=== PATIENT | male | born 1950 | race Caucasian/White ===

== ENCOUNTER 2016-12-03 21:42 | Emergency (ER) | payer OTHER, BC ==
[2016-12-03 22:07] VITALS: PULSE 91; TEMP 98.8; BMI 29.0
--- NOTE | 2016-12-03 22:51 | PDOC ---
History of Present Illness - General Chief Complaint: Blood Pressure Problem Stated Complaint: BLOOD PRESSURE Time Seen by Provider: 12/03/16 22:29 - History of Present Illness Initial Comments: 12/03/16 22:49 CHIEF COMPLAINT: blood pressure concern HISTORY OF PRESENT ILLNESS: 66 years old male with a significant past medical history of COPD, benign lung mass s/p LLL resection, pneumonia, ND s/p stent, HTN, HLD, GERD, BPH, anemia who presents to the emergency department with concern of elevated blood pressure today. Patient states he had a dental procedure and was given anesthesia to the right side of his face today, and afterwards he was measuring his blood pressure at home and was concerned because it "kept going up and up" with the highest BP measuring in the 180s/ 100s. Patient denies any chest pain, shortness of breath, or palpitations, and on arrival to ED with BP of 160/85 patient states "oh ok, then I'm ok, I can go home now." Patient continuously denies any other symptoms and states he will follow up with his PCP. No recent travel or sick contacts. PAST MEDICAL HISTORY: Denies past medical history FAMILY HISTORY: Denies SOCIAL HISTORY: Denies tobacco, alcohol, illicit drug use. SURGICAL HISTORY: Denies ALLERGIES: levofloxacin REVIEW OF SYSTEMS General/Constitutional: Denies fever or chills. Denies weakness, weight change. HEENT: Denies change in vision. Denies ear pain or discharge. Denies sore throat. Cardiovascular: Denies chest pain or shortness of breath. Respiratory: Denies cough, wheezing, or hemoptysis. Gastrointestinal: Denies nausea, vomiting, diarrhea or constipation. Denies rectal bleeding. Genitourinary: Denies dysuria, frequency, or change in urination. Musculoskeletal: Denies joint or muscle swelling or pain. Denies neck or back pain. Skin and breasts: Denies rash or easy bruising. Neurologic: Denies headache, vertigo, loss of consciousness, or loss of sensation. PHYSICAL EXAM General Appearance: Well-appearing, appropriately dressed. No apparent distress. HEENT: EOMI, PERRLA, normal ENT inspection, normal voice, TMs normal, pharynx normal. No conjunctival pallor. No photophobia, scleral icterus. Neck: Supple. Trachea midline. No tenderness, rigidity, carotid bruit, stridor , lymphadenopathy, or thyromegaly. Respiratory/Chest: Lungs CTAB. Cardiovascular: RRR. S1, S2. Gastrointestinal/Abdominal: Normal bowel sounds. Abdomen soft, non-distended. No tenderness or rebound tenderness. No organomegaly, pulsatile mass, guarding , hernia, hepatomegaly, splenomegaly. Musculoskeletal/Extremities: Normal inspection. FROM of all extremities, normal capillary refill. Pelvis Stable. No CVA tenderness. No tenderness to extremities, pedal edema, swelling, erythema or deformity. Integumentary: Appropriate color, dry, warm. 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 Fully oriented, alert. Appropriate mood/affect. Motor strength 5/5. No appreciable EOM palsy, facial droop or sensory deficit. 12/03/16 23:03 Past History - Past Medical History Allergies/Adverse Reactions: Allergies Allergy/AdvReac Type Severity Reaction Status Date / Time levofloxacin [From Levaquin] AdvReac Severe Rash Verified 04/21/16 01:31 Home Medications: Ambulatory Orders Aspirin [ASA -] 81 mg PO DAILY 11/14/12 Atorvastatin Ca [Lipitor] 40 mg PO HS 11/14/12 Lisinopril [Prinivil] 40 mg PO BID 11/14/12 Amlodipine Besylate [Norvasc -] 10 mg PO DAILY 03/07/13 Ranolazine [Ranexa] 500 mg PO BID 03/07/13 Pantoprazole Sodium [Protonix -] 40 mg PO DAILY 10/10/14 Clopidogrel Bisulfate [Plavix -] 75 mg PO DAILY #0 10/11/14 Metoprolol Succinate [Toprol Xl] 50 mg PO DAILY 12/03/16 Tamsulosin HCl [Flomax] 0.4 mg PO DAILY 12/03/16 Anemia: Yes Asthma: No Cancer: No Cardiac Disorders: Yes (ND SEP 2012,STENT 11/09) CVA: No COPD: Yes (H/O PNEUMONIA,H/O TB 1998 COMPLETED INH,BENIGN LUNG MASS-LLL REMOVED) CHF: No Dementia: No Diabetes: No GI Disorders: Yes (GERD) Disorders: Yes (BPH) HTN: Yes Hypercholesterolemia: Yes Liver Disease: No Suicide Attempt (Hx): No Seizures: No Thyroid Disease: No - Surgical History Abdominal Surgery: No Cardiac Surgery: Yes (cardiac cath 10/2012) Cholecystectomy: Yes Lung Surgery: Yes (lung resection,1999,BENIGN MASS) Neurologic Surgery: No Orthopedic Surgery: No - Immunization History Immunization Up to Date: No - Psycho/Social/Smoking Cessation Hx Anxiety: No Suicidal Ideation: No Smoking Status: Yes Smoking History: Former smoker Have you smoked in the past 12 months: No Number of Cigarettes Smoked Daily: 0 If you are a former smoker, when did you quit?: 1999 Information on smoking cessation initiated: No Hx Alcohol Use: No Drug/Substance Use Hx: No Substance Use Type: None Hx Substance Use Treatment: No *Physical Exam - Vital Signs Last Vital Signs Temp Pulse Resp BP Pulse Ox 98.8 F 91 H 18 185/89 99 12/03/16 22:04 12/03/16 22:04 12/03/16 22:04 12/03/16 22:04 12/03/16 22:04 Medical Decision Making - Medical Decision Making 12/03/16 23:15 66 years old male with a significant past medical history of COPD, benign lung mass s/p LLL resection, pneumonia, ND s/p stent, HTN, HLD, GERD, BPH, anemia who presents to the emergency department with concern of elevated blood pressure today. On exam patient denies any complaints and states he is reassured now that his blood pressure has lowered and wants to go home. However patient is amenable to having an EKG performed. EKG NSR, no acute changes. Patient states he will f/u with his PCP for further monitoring and evaluation. Advised patient of signs and symptoms for return to ER; patient verbalized understanding and agrees to plan.
[2016-12-03 22:56] VITALS: BP 160/85
--- NOTE | 2016-12-04 12:20 | EKG ---
Test Reason : Blood Pressure : / mmHG Vent. Rate : 068 BPM Atrial Rate : 068 BPM P-R Int : 192 ms QRS Dur : 122 ms QT Int : 418 ms P-R-T Axes : 061 -56 -03 degrees QTc Int : 444 ms NORMAL SINUS RHYTHM LEFT ANTERIOR FASCICULAR BLOCK ABNORMAL ECG WHEN COMPARED WITH ECG OF 21-APR-2016 02:22, PREMATURE VENTRICULAR COMPLEXES ARE NO LONGER PRESENT Confirmed by ELICEO DENNY, AKBAR ([id number]) on 12/04/2016 12:20:26 PM Referred By: Confirmed By:AKBAR FENTON MD
== END 2016-12-03 23:20 | disposition home or self-care (01) ==
LOC: JER 21:42
DX: Z01.31 Encounter for examination of blood pressure with abnormal findings (principal); J44.9 Chronic obstructive pulmonary disease, unspecified; Z87.891 Personal history of nicotine dependence; I10 Essential (primary) hypertension; K21.9 Gastro-esophageal reflux disease without esophagitis; E78.00 Pure hypercholesterolemia, unspecified
CPT/HCPCS: 93005; 93010; 99282-25

== ENCOUNTER 2016-12-18 13:27 | Observation (INO) | payer OTHER, BC ==
[2016-12-18] MEDS ORDERED: ASPIRIN 81 MG CHEWABLE TABLETS PO ONE (14:06)
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
--- NOTE | 2016-12-18 14:19 | PDOC ---
History of Present Illness - General Chief Complaint: Chest Pain Stated Complaint: CHEST PAIN Time Seen by Provider: 12/18/16 13:49 Past History - Past Medical History Allergies/Adverse Reactions: Allergies Allergy/AdvReac Type Severity Reaction Status Date / Time levofloxacin [From Levaquin] AdvReac Severe Rash Verified 12/18/16 13:32 Home Medications: Ambulatory Orders Aspirin [ASA -] 81 mg PO DAILY 11/14/12 Atorvastatin Ca [Lipitor] 40 mg PO HS 11/14/12 Lisinopril [Prinivil] 40 mg PO BID 11/14/12 Amlodipine Besylate [Norvasc -] 10 mg PO DAILY 03/07/13 Ranolazine [Ranexa] 500 mg PO BID 03/07/13 Pantoprazole Sodium [Protonix -] 40 mg PO DAILY 10/10/14 Clopidogrel Bisulfate [Plavix -] 75 mg PO DAILY #0 10/11/14 Metoprolol Succinate [Toprol Xl] 50 mg PO DAILY 12/03/16 Tamsulosin HCl [Flomax] 0.4 mg PO DAILY 12/03/16 Anemia: Yes Asthma: No Cancer: No Cardiac Disorders: Yes (LA SEP 2012,STENT 11/09) CVA: No COPD: Yes (H/O PNEUMONIA,H/O TB 1997 COMPLETED INH,BENIGN LUNG MASS-LLL REMOVED) CHF: No Dementia: No Diabetes: No GI Disorders: Yes (GERD) Disorders: Yes (BPH) HTN: Yes Hypercholesterolemia: Yes Liver Disease: No Seizures: No Thyroid Disease: No - Surgical History Abdominal Surgery: No Cardiac Surgery: Yes (cardiac cath 10/2012) Cholecystectomy: Yes Lung Surgery: Yes (lung resection,1999,BENIGN MASS) Neurologic Surgery: No Orthopedic Surgery: No - Immunization History Immunization Up to Date: No - Suicide/Smoking/Psychosocial Hx Smoking Status: Yes Smoking History: Never smoked Have you smoked in the past 12 months: No Number of Cigarettes Smoked Daily: 0 If you are a former smoker, when did you quit?: 1999 Information on smoking cessation initiated: No Hx Alcohol Use: No Drug/Substance Use Hx: No Substance Use Type: None Hx Substance Use Treatment: No *Physical Exam - Vital Signs Last Vital Signs Temp Pulse Resp BP Pulse Ox 97.9 F 78 18 160/88 96 12/18/16 13:29 12/18/16 13:29 12/18/16 13:29 12/18/16 13:29 12/18/16 14:07
--- NOTE | 2016-12-18 14:25 | PDOC ---
Attending Attestation - HPI HPI: 12/18/16 14:31 The patient is a 66 year old male with history of hypertension, hyperlipidemia, CAD s/p OR s/p stent, sent to the ED by his PCP for 3 days of chest pain. He describes his chest pain as left sided, sharp/stabbing, not radiating or migrating, ranked 4/10 in intensity. No modifying factors. No nausea, vomiting, or diaphoresis. No lightheadedness, palpitations, SOB, or peripheral edema. Seen by his PCP this morning who sent him to ED for further evaluation. PCP: Dr. Sage - Physicial Exam PE: 12/18/16 14:33 GENERAL: Awake, alert, and fully oriented, in no acute distress HEAD: No signs of trauma EYES: PERRLA, EOMI, sclera anicteric, conjunctiva clear ENT: Auricles normal inspection, hearing grossly normal, nares patent, oropharynx clear without exudates. Moist mucosa NECK: Normal ROM, supple, no lymphadenopathy, JVD, or masses LUNGS: Breath sounds equal, clear to auscultation bilaterally. No wheezes, and no crackles HEART: Regular rate and rhythm, normal S1 and S2, no murmurs, rubs or gallops ABDOMEN: Soft, nontender, normoactive bowel sounds. No guarding, no rebound. No masses EXTREMITIES: Normal range of motion, no edema. No clubbing or cyanosis. No cords, erythema, or tenderness NEUROLOGICAL: Cranial nerves II through XII grossly intact. Normal speech, normal gait SKIN: Warm, Dry, normal turgor, no rashes or lesions noted. - Medical Decision Making 12/18/16 14:33 Documentation prepared by Isamar Guy, acting as site medical director for Luis A Russell MD. <Isamar Guy - Last Filed: 12/18/16 14:31> - Resident Resident Name: Margie Oneal - ED Attending Attestation I have performed the following: I have examined & evaluated the patient, The case was reviewed & discussed with the resident, I agree w/resident's findings & plan, Exceptions are as noted - Medical Decision Making 12/18/16 14:25 Vital Signs Temp Pulse Resp BP Pulse Ox 97.9 F 78 18 160/88 96 12/18/16 13:29 12/18/16 13:29 12/18/16 13:29 12/18/16 13:29 12/18/16 14:07 66-year-old male with history of hypertension, COPD, coronary disease status post stent sent in by his primary care physician Dr. Sage for chest pain. The patient reports 3 days constant midsternal sharp occasionally pressure-like chest pain or shortness of breath. Does not have an exertional component. Denies recent illnesses, fevers or chills. Denies history of pulmonary embolism or pleuritic component. We'll need to rule out OR. EKG, chest x-ray, aspirin admission to the hospital for further evaluation. <Luis A Russell - Last Filed: 12/18/16 14:58> Heart Score/ECG Review - History History: Moderately suspicious - Electrocardiogram EKG: Non specific repolarization disturbance - Age Age: >/= 65 - Risk Factors Based on the list above the patient has:: >/=3 risk factors or Hx atherosclerotic disease #1 ECG reviewed & interpreted by me at: 14:55 12/18/16 14:58 NSR 61 TWI III LAFB, no std/tracey, QTC 436 msec <Luis A Russell - Last Filed: 12/18/16 14:58>
[2016-12-18 14:40] LABS: BASOPHIL 0.7 % (0-2.0); EOSINOPHIL 1.4 % (0-4.5); MCH 27.7 pg (25.7-33.7); MCHC 33.5 g/dl (32.0-35.9); MEAN CELL VOLUME 82.7 fl (80-96); MEAN PLT VOLUME 7.2 fl (7.5-11.1); NEUTROPHILS 71.9 % (42.8-82.8); PLATELET COUNT 265 K/MM3 (134-434); RDW 13.9 % (11.9-15.9); WHITE BLOOD COUNT 8.3 K/mm3 (4.0-10.0)
[2016-12-18] MEDS ORDERED: ASPIRIN 81 MG CHEWABLE TABLETS ONE (14:45)
[2016-12-18 14:55] LABS: INR 1.25 (0.82-1.09); PROTHROMBIN TIME (PATIENT) 13.8 SEC (9.98-11.88)
[2016-12-18 15:06] LABS: ALBUMIN 4.2 g/dl (3.4-5.0); ANION GAP 11 (8-16); BILIRUBIN,TOTAL 1.1 mg/dL (0.2-1.0); CALCIUM 9.6 mg/dL (8.5-10.1); CO2 27 mmol/L (21-32); CPK 77 IU/L (39-308); CREATININE 1.5 mg/dL (0.7-1.3); GLUCOSE,RANDOM 107 mg/dL (74-106); MAGNESIUM 2.3 mg/dL (1.8-2.4); SGOT/AST 12 U/L (15-37); SGPT/ALT 29 U/L (12-78); TOT PROT 7.7 g/dl (6.4-8.2)
[2016-12-18 15:08] LABS: ALK PHOS 63 U/L (45-117); TROPONIN I < 0.02 ng/ml (0.00-0.05)
--- NOTE | 2016-12-18 15:58 | EKG ---
Test Reason : Blood Pressure : / mmHG Vent. Rate : 061 BPM Atrial Rate : 061 BPM P-R Int : 190 ms QRS Dur : 120 ms QT Int : 434 ms P-R-T Axes : 050 -52 009 degrees QTc Int : 436 ms NORMAL SINUS RHYTHM LEFT ANTERIOR FASCICULAR BLOCK ABNORMAL ECG WHEN COMPARED WITH ECG OF 03-DEC-2016 23:06, NO SIGNIFICANT CHANGE WAS FOUND Confirmed by AKBAR FENTON MD ([id number]) on 12/18/2016 3:57:44 PM Referred By: Confirmed By:AKBAR FENTON MD
[2016-12-18] MEDS ORDERED: RANOLAZINE E.R. 500 MG TABLET (FP) PO ONE (16:59)
[2016-12-18] MEDS ORDERED: CLOPIDOGREL BISULFATE 75 MG TABLET (FP) PO ONE (17:00)
[2016-12-18] MEDS ORDERED: CLOPIDOGREL BISULFATE 75 MG TABLET (FP) ONE (17:17)
[2016-12-18 18:50] VITALS: BMI 29.0
[2016-12-18 20:51] LABS: CPK 65 IU/L (39-308); TROPONIN I < 0.02 ng/ml (0.00-0.05)
[2016-12-18] MEDS: RANOLAZINE E.R. 500 MG TABLET (FP) PO SCH (21:03)
[2016-12-18] MEDS ORDERED: ATORVASTATIN CA 40 MG TABLET (FP) PO SCH (22:00)
[2016-12-18] MEDS ORDERED: LISINOPRIL 20 MG TABLET (FP) PO SCH (22:00)
[2016-12-18] MEDS: NITROGLYCERIN 2% OINTMENT - 1GM PACKET TD SCH (23:37)
[2016-12-19] MEDS: NITROGLYCERIN 2% OINTMENT - 1GM PACKET TD SCH ×2 (06:28→13:59)
[2016-12-19 06:36] LABS: BASOPHIL 1.1 % (0-2.0); EOSINOPHIL 3.2 % (0-4.5); MCH 27.8 pg (25.7-33.7); MCHC 33.9 g/dl (32.0-35.9); MEAN CELL VOLUME 82.1 fl (80-96); MEAN PLT VOLUME 7.4 fl (7.5-11.1); NEUTROPHILS 58.8 % (42.8-82.8); PLATELET COUNT 232 K/MM3 (134-434); RDW 13.7 % (11.9-15.9); WHITE BLOOD COUNT 8.7 K/mm3 (4.0-10.0)
[2016-12-19 06:56] LABS: ALBUMIN 3.5 g/dl (3.4-5.0); ANION GAP 8 (8-16); BILIRUBIN,TOTAL 0.9 mg/dL (0.2-1.0); CO2 29 mmol/L (21-32); CREATININE 1.4 mg/dL (0.7-1.3); GLUCOSE,RANDOM 99 mg/dL (74-106); SGOT/AST 13 U/L (15-37); SGPT/ALT 27 U/L (12-78); TOT PROT 6.7 g/dl (6.4-8.2)
[2016-12-19 06:59] LABS: ALK PHOS 56 U/L (45-117); TROPONIN I < 0.02 ng/ml (0.00-0.05)
[2016-12-19] MEDS ORDERED: TAMSULOSIN HCL 0.4 MG CAP.ER.24H (FP) PO SCH (08:30)
[2016-12-19] MEDS ORDERED: SODIUM CHLORIDE 0.45%/POT 1,000 ML IV SCH (08:45)
--- NOTE | 2016-12-19 08:55 | HP ---
Admitting History and Physical - Admission History of Present Illness: 66yo M with PMH of [place] with stent, htn, hld, gerd, COPD, presents c/o chest pain x 3 days. Pain is in Left chest, described as a sharp/stabbing pain, non- radiating, rated 4/10. Pain is not worse with position change,or eating. Pain is not reproducible on palpation. Pt did not take any medication to alleviate the pain. He was seen in the office given nitro with some relief This am still with chest pain with some improvement - Past Medical History Cardiovascular: Yes: CAD (s/p stenting--LAD), HTN, Hyperlipdemia Pulmonary: Yes: COPD, Other (lobectomy) - Smoking History Smoking history: Never smoked Have you smoked in the past 12 months: No Aproximately how many cigarettes per day: 0 If you are a former smoker, when did you quit?: 1999 - Alcohol/Substance Use Hx Alcohol Use: No Home Medications - Allergies Allergies/Adverse Reactions: Allergies Allergy/AdvReac Type Severity Reaction Status Date / Time levofloxacin [From Levaquin] AdvReac Severe Rash Verified 12/18/16 13:32 - Home Medications Home Medications: Ambulatory Orders Aspirin [ASA -] 81 mg PO DAILY 11/14/12 Atorvastatin Ca [Lipitor] 40 mg PO HS 11/14/12 Lisinopril [Prinivil] 40 mg PO BID 11/14/12 Amlodipine Besylate [Norvasc -] 10 mg PO DAILY 03/07/13 Ranolazine [Ranexa] 500 mg PO BID 03/07/13 Pantoprazole Sodium [Protonix -] 40 mg PO DAILY 10/10/14 Clopidogrel Bisulfate [Plavix -] 75 mg PO DAILY #0 10/11/14 Metoprolol Succinate [Toprol Xl] 50 mg PO DAILY 12/03/16 Tamsulosin HCl [Flomax] 0.4 mg PO DAILY 12/03/16 Review of Systems - Review of Systems Cardiovascular: reports: Chest Pain. denies: Palpitations Respiratory: reports: SOB on Exertion Gastrointestinal: reports: No Symptoms Genitourinary: reports: No Symptoms Physical Examination Vital Signs: Vital Signs Temperature 98.2 F 12/19/16 06:00 Pulse Rate 63 12/19/16 06:00 Respiratory Rate 20 12/19/16 06:00 Blood Pressure 116/67 12/19/16 06:00 O2 Sat by Pulse Oximetry (%) 92 L 12/18/16 21:00 Cardiovascular: Yes: Regular Rate and Rhythm Respiratory: Yes: Regular, CTA Bilaterally Gastrointestinal: Yes: Normal Bowel Sounds, Soft. No: Tenderness Edema: No Labs: CBC, BMP 12/19/16 05:30 12/19/16 05:30 Problem List - Problems (1) Atypical chest pain Assessment/Plan: CE NEGATIVE D/W DR TOVAR--TRANSFER FOR CATH AT [facility] Code(s): R07.89 - OTHER CHEST PAIN (2) Hypertension Assessment/Plan: MONITOR ON CURRENT MEDS ON ASA/PLAVIX ON NITROPASTE Code(s): I10 - ESSENTIAL (PRIMARY) HYPERTENSION (3) CAD (coronary artery disease) Assessment/Plan: ABOVE Code(s): I25.10 - ATHSCL HEART DISEASE OF [place] CORONARY ARTERY W/O ANG PCTRS
[2016-12-19] MEDS: RANOLAZINE E.R. 500 MG TABLET (FP) PO SCH (10:00)
[2016-12-19] MEDS ORDERED: ASPIRIN 81 MG CHEWABLE TABLETS PO SCH (10:00)
[2016-12-19] MEDS ORDERED: PANTOPRAZOLE 40 MG TABLET (FP) PO SCH (10:00)
[2016-12-19] MEDS ORDERED: LISINOPRIL 20 MG TABLET (FP) PO SCH (10:00)
[2016-12-19] MEDS ORDERED: CLOPIDOGREL BISULFATE 75 MG TABLET (FP) PO SCH (10:00)
[2016-12-19] MEDS ORDERED: amLODIPine BESYLATE 5 MG TABLET (FP) PO SCH (10:00)
[2016-12-19] MEDS ORDERED: METOPROLOL SUCCINATE 50 MG TAB.SR.24H (FP) PO SCH (10:00)
--- NOTE | 2016-12-19 14:11 | CON.CARD ---
Consult Consult Specialty:: cardiology Referred by:: Alona Reason for Consultation:: Chest pain - History of Present Illness Chief Complaint: Chest pain History of Present Illness: The patient is a 66-year-old man, with a history of hypertension, hyperlipidemia , GERD, COPD, coronary artery disease and myocardial infarction, prior stent to the proximal LAD and mid RCA in 2012, now presenting with recurrent chest pains for the past 4 days. The patient underwent cardiac catheterization approximately one year ago, which showed patent stents. A recent stress test was normal. The symptoms improved with the nitroglycerin patch. Symptoms are not reproducible. - History Source History Provided By: Patient Limitations to Obtaining History: No Limitations - Past Medical History [employer] WORK[employer]: No: Alzheimer's, CVA, Dementia, Migraine, Multiple Sclerosis, Peripheral Neuropathy, Parkinson's, Seizure, Syncope, TIA, Vertigo, Other Cardio/Vascular: Yes: CAD (s/p stenting--LAD), HTN, Hyperlipdemia Pulmonary: Yes: COPD, Other (lobectomy). No: Asthma, Bronchitis, Cancer, O2 Dependent, Pneumonia, Previously Intubated, Pulmonary Embolus, Pulmonary Fibrosis, Sleep Apnea Gastrointestinal: No: Ascites, Cancer, Constipation, Crohn's Disease, Diverticulitis, Diverticulosis, Esophageal Varices, Gastritis, GERD, GI Bleed, Hemorrhoids, Hiatal Hernia, Inflamatory Bowel Disease, Irritable Bowel Disease, Pancreatitis, Peptic Ulcer Disease, Ulcerative Colitis, Other Hepatobiliary: No: Cirrhosis, Cholelithiasis, Cholecystitis, Choledocholithiasis , Hepatitis A, Hepatitis B, Hepatitis C, Other Renal/: No: Renal Failure, Renal Inusuff, BPH, Cancer, Hematuria, Hemodialysis , Neurogenic Bladder, Renal Calculi, UTI, Other Heme/Onc: No: Anemia, B12 Deficiency, Bleeding Disorder, Cancer, Current Chemotherapy, Current Radiation Therapy, Hemochromatosis, Hypercoaguable State, Myeloproliferative Synd, Sickle Cell Disease, Sickle Cell Trait, Thrombocytopenia, Other Infectious Disease: No: AIDS, C-Diff, Herpes Zoster, HIV, MRSA, STD's, Tuberculosis, VREF, Other Psych: No: Addictions, Anxiety, Bipolar, Depression, Panic, Psychosis, Schizophrenia, Other Musculoskeletal: No: Bursitis, Chronic low back pain, Hemiparesis, Hemiplegia, Osteoarthritis, Paraplegia, Other Rheumatology: No: Fibromyalgia, Gout, Lupus, Rheumatoid Arthritis, Sarcoidosis, Vasculitis, Other ENT: No: Allergic Rhinitis, Sinusitis, Other Endocrine: No: Alistair's Disease, [place]'s Disease, Diabetes Insipidus, Diabetes Mellitus, Hyperparathyroidism, Hyperthyroidism, Hypothyroidism, Osteopenia, SIADH, Other Dermatology: No: Basal Cell, Cellulitis, Eczema, Melanoma, Psoriasis, Squamous Cell, Other - Alcohol/Substance Use Hx Alcohol Use: No - Smoking History Smoking history: Never smoked Have you smoked in the past 12 months: No Aproximately how many cigarettes per day: 0 If you are a former smoker, when did you quit?: 1999 Home Medications - Allergies Allergies/Adverse Reactions: Allergies Allergy/AdvReac Type Severity Reaction Status Date / Time levofloxacin [From Levaquin] AdvReac Severe Rash Verified 12/18/16 13:32 - Home Medications Home Medications: Ambulatory Orders Aspirin [ASA -] 81 mg PO DAILY 11/14/12 Atorvastatin Ca [Lipitor] 40 mg PO HS 11/14/12 Lisinopril [Prinivil] 40 mg PO BID 11/14/12 Amlodipine Besylate [Norvasc -] 10 mg PO DAILY 03/07/13 Ranolazine [Ranexa] 500 mg PO BID 03/07/13 Pantoprazole Sodium [Protonix -] 40 mg PO DAILY 10/10/14 Clopidogrel Bisulfate [Plavix -] 75 mg PO DAILY #0 10/11/14 Metoprolol Succinate [Toprol Xl] 50 mg PO DAILY 12/03/16 Tamsulosin HCl [Flomax] 0.4 mg PO DAILY 12/03/16 Review of Systems - Review of Systems Constitutional: denies: No Symptoms, Chills, Diaphoresis, Fever, Lethargy, Loss of Appetite, Malaise, Night Sweats, Unintentional Wgt. Loss, Weakness, Other Eyes: denies: No Symptoms, Blind Spots, Blurred Vision, Double Vision, Eye Pain , Floaters, Photophobia, Recent Change in Vision, Other HENT: denies: No Symptoms, Difficult Swallowing, Ear Discharge, Ear Pain, Epistaxis, Gingival Bleeding, Hearing Loss, Mouth Swelling, Nasal Congestion, Ocular Prosthesis, Throat Pain, Toothache, Ringing in Ears, Other Neck: reports: No Symptoms Cardiovascular: reports: Chest Pain Respiratory: reports: No Symptoms Gastrointestinal: reports: No Symptoms Genitourinary: reports: No Symptoms Breasts: reports: No Symptoms Reported Musculoskeletal: reports: No Symptoms Integumentary: reports: No Symptoms Neurological: reports: No Symptoms Endocrine: reports: No Symptoms Vital Signs: Vital Signs Temperature 98.0 F 12/19/16 10:00 Pulse Rate 60 12/19/16 10:00 Respiratory Rate 18 12/19/16 10:00 Blood Pressure 123/66 12/19/16 10:00 O2 Sat by Pulse Oximetry (%) 94 L 12/19/16 10:00 Constitutional: Yes: Well Nourished, No Distress, Calm Eyes: Yes: WNL, Conjunctiva Clear HENT: Yes: WNL, Atraumatic, Normocephalic Neck: Yes: WNL, Supple, Trachea Midline Respiratory: Yes: WNL, Regular, CTA Bilaterally Gastrointestinal: Yes: WNL, Normal Bowel Sounds, Soft Renal/: Yes: WNL Cardiovascular: Yes: Regular Rate and Rhythm JVD: No Carotid Bruit: No PMI: Non-Displaced Heart Sounds: Yes: S1, S2 Musculoskeletal: Yes: WNL Extremities: Yes: WNL Edema: No Peripheral Pulses WNL: No Integumentary: Yes: WNL Neurological: Yes: WNL ...Motor Strength: WNL Psychiatric: Yes: WNL - Other Data Labs, Other Data: CBC, BMP 12/19/16 05:30 12/19/16 05:30 INR, PTT INR 1.25 (0.82-1.09) H 12/18/16 14:30 Troponin, BNP 12/18/16 12/19/16 19:20 05:30 Troponin I < 0.02 < 0.02 Troponin, BNP 12/18/16 12/19/16 19:20 05:30 Troponin I < 0.02 < 0.02 Assessment/Plan 66-year-old man with known coronary artery disease and prior stents, now presenting with recurrent chest pain. The patient ruled out for myocardial infarction. There is no CHF. No acute ECG changes. The patient is in sinus rhythm. The symptoms are persisting for the past 4 days. The improved with the nitroglycerin patch. Keep the patient NPO Continue current regimen. The patient will be transferred to [facility] for cardiac catheterization today. Stable for transfer.
[2016-12-19 15:23] VITALS: BP 133/76; PULSE 63; TEMP 97.7
== END 2016-12-19 16:50 | disposition short-term general hospital (02) ==
LOC: JER 13:27 → JERBED 15:48 → J4S 17:33
PROVIDERS: ADMIT Family Medicine; ATTEND Family Medicine
DX: I10 Essential (primary) hypertension (principal); I25.10 Atherosclerotic heart disease of native coronary artery without angina pectoris; I25.2 Old myocardial infarction; E78.5 Hyperlipidemia, unspecified; K21.9 Gastro-esophageal reflux disease without esophagitis; J44.9 Chronic obstructive pulmonary disease, unspecified; N40.0 Benign prostatic hyperplasia without lower urinary tract symptoms; Z86.11 Personal history of tuberculosis; Z79.82 Long term (current) use of aspirin; Z88.1 Allergy status to other antibiotic agents; Z95.5 Presence of coronary angioplasty implant and graft; Z79.01 Long term (current) use of anticoagulants; Z86.2 Personal history of diseases of the blood and blood-forming organs and certain disorders involving the immune mechanism; Z90.2 Acquired absence of lung [part of]
CPT/HCPCS: 36415; 71020-TC; 80053; 83735; 84484; 85025; 85610; 93005; 93010; 99285-25; G0378; J3480

== ENCOUNTER 2017-05-29 08:01 | Observation (INO) | payer OTHER, BC ==
--- NOTE | 2017-05-29 08:28 | PDOC ---
Attending Attestation - Resident Resident Name: David Jin - HPI HPI: 05/29/17 11:32 Pt presents to the ED complaining of a several day history of bright red blood per rectum that became acutely worse today. Patient has a history of CAD, and complains of lightheadness but not chest pain or worsening shortness of breath. - Physicial Exam PE: 05/29/17 11:35 Agree with resident exam. Patient is alert and oriented in no acute distresss. Abdomen is soft, non distended and non tender. - Medical Decision Making 05/29/17 11:35 Pt presents to the ED with bright red blood per rectum. Denies other complaints. + gross blood on exam, but is hemodyanmically stable without severe anemia. Will admit to medicine for continued monitoring and serial hemoglobins.
--- NOTE | 2017-05-29 08:43 | PDOC ---
History of Present Illness - General Chief Complaint: Rectal Bleed Stated Complaint: RECTAL BLEEDING Time Seen by Provider: 05/29/17 08:24 - History of Present Illness Initial Comments: 05/29/17 09:05 The patient is a 66 year old male with a history of HTN, HLD, COPD, [place] s/p stenting 2012, Anemia who presents for evaluation of rectal bleeding. The patient reports intermittent BRBPR over the past month. He notes that over the past 2 days he has been experiencing constant BRBPR with more frequent bowel movements that he notes this morning as consisting mostly of blood prompting his presentation to the ED for evaluation. He notes that he is on aspirin and plavix. He states that he had a colonoscopy 3-5 years ago that was reportedly unremarkable. Otherwise he denies any symptoms similar to this in the past. He endorses some lightheadedness as well as some SOB which is unchanged from his baseline due to his COPD. He otherwise denies fevers, chills, chest pain, nausea, vomiting, abdominal pain, pain with bowel movements, or changes with urination. Past History - Past Medical History Allergies/Adverse Reactions: Allergies Allergy/AdvReac Type Severity Reaction Status Date / Time levofloxacin [From Levaquin] AdvReac Severe Rash Verified 05/29/17 08:07 Home Medications: Ambulatory Orders Aspirin [ASA -] 81 mg PO DAILY 11/14/12 Atorvastatin Ca [Lipitor] 40 mg PO HS 11/14/12 Lisinopril [Prinivil] 40 mg PO BID 11/14/12 Amlodipine Besylate [Norvasc -] 10 mg PO DAILY 03/07/13 Ranolazine [Ranexa] 500 mg PO BID 03/07/13 Pantoprazole Sodium [Protonix -] 40 mg PO DAILY 10/10/14 Clopidogrel Bisulfate [Plavix -] 75 mg PO DAILY #0 10/11/14 Metoprolol Succinate [Toprol Xl] 50 mg PO DAILY 12/03/16 Tamsulosin HCl [Flomax] 0.4 mg PO DAILY 12/03/16 Anemia: Yes Asthma: No Cancer: No Cardiac Disorders: Yes ([place] SEP 2012,STENT 11/09) CVA: No COPD: Yes (H/O PNEUMONIA,H/O TB 1997 COMPLETED INH,BENIGN LUNG MASS-LLL REMOVED) CHF: No Dementia: No Diabetes: No GI Disorders: Yes (GERD) Disorders: Yes (BPH) HTN: Yes Hypercholesterolemia: Yes Liver Disease: No Seizures: No Thyroid Disease: No - Surgical History Abdominal Surgery: No Cardiac Surgery: Yes (cardiac cath 10/2012) Cholecystectomy: Yes Lung Surgery: Yes (lung resection,1999,BENIGN MASS) Neurologic Surgery: No Orthopedic Surgery: No - Immunization History Immunization Up to Date: No - Suicide/Smoking/Psychosocial Hx Smoking Status: Yes Smoking History: Never smoked Have you smoked in the past 12 months: No Number of Cigarettes Smoked Daily: 0 If you are a former smoker, when did you quit?: 1999 Information on smoking cessation initiated: No Hx Alcohol Use: No Drug/Substance Use Hx: No Substance Use Type: None Hx Substance Use Treatment: No Review of Systems - Review of Systems Comments:: 05/29/17 09:10 Constitutional: No fevers, chills, fatigue, malaise HEENT: No Rhinorrhea, nasal congestion, visual changes Cardiovascular: Lightheadedness. No chest pain, syncope, palpitations, Respiratory: SOB. No Cough, Hemoptysis, Gastrointestinal: BRBPR. No Abdominal pain, Nausea, Vomiting, Constipation, Diarrhea, Melena Genitourinary: No Dysuria, Frequency, Urgency, Hesitancy, Hematuria, Flank pain Musculoskeletal: No Myalgia, arthralgia Skin: No rashes, itching, bruising, pallor Neurologic: No Headache, Dizziness, Numbness, Weakness, or Tingling Psychiatric: No Hallucinations. No SI or HI *Physical Exam - Vital Signs Last Vital Signs Temp Pulse Resp BP Pulse Ox 97.7 F 87 17 136/73 97 05/29/17 08:08 05/29/17 08:08 05/29/17 08:08 05/29/17 08:08 05/29/17 08:08 - Physical Exam Comments: 05/29/17 09:11 General Appearance: Nourished. No Apparent Distress HEENT: EOMI, GORGE. No Pharyngeal Erythema, Tonsillar Exudate, Tonsillar Erythema Neck: No Cervical Lymphadenopathy Respiratory/Chest: Lungs Clear, Normal Breath Sounds. No Crackles, Rales, Rhonchi, Wheezing Cardiovascular: Regular Rhythm, Regular Rate. 2/6 Systolic murmur noted on exam. No Gallops, Rubs Gastrointestinal/Abdominal: Normal Bowel Sounds, Soft. No Guarding, Rebound, Tenderness Rectal Exam: No external hemorrhoids noted. Bright red blood noted externally on exam. No internal abnormalities noted. Musculoskeletal: No CVA Tenderness Extremity: Normal Capillary Refill Integumentary: Normal Color, Dry, Warm Neurologic: Fully Oriented, Alert, Normal Mood/Affect, Normal Response, ED Treatment Course - LABORATORY CBC & Chemistry Diagram: 05/29/17 09:00 05/29/17 09:00 Medical Decision Making - Medical Decision Making 05/29/17 09:24 The patient is a 66 year old male with a history of HTN, HLD, COPD, [place] s/p stenting 2013, Anemia who presents for evaluation of rectal bleeding. Given the patient's physical exam, no hemorrhoids are noted and it is possible his bleeding is due to an internal cause within the colon. We will send a cbc, cmp , lipase, troponin, ekg, coags to evaluate further. We will continue to monitor and reassess. He will likely require admission for colonoscopy. 05/29/17 11:05 CBC, cmp, lipase, troponin are unremarkable. Given the patient's symptoms we believe he requires admission and GI evaluation. We discussed the case with Dr. Sage who accepted the patient for admission. *DC/Admit/Observation/Transfer Diagnosis at time of Disposition: Rectal bleed - Discharge Dispostion Condition at time of disposition: Stable Admit: Yes - Referrals Referrals: Elicia Sage MD [Primary Care Provider] - - Patient Instructions - Post Discharge Activity
[2017-05-29 09:11] LABS: BASO % 0.9 % (0-2.0); EOS % 1.7 % (0-4.5); HEMATOCRIT 36.8 % (35.4-49); HEMOGLOBIN 12.8 GM/dL (11.7-16.9); LYMPH % 12.6 % (8-40); MCH 28.4 pg (25.7-33.7); MCHC 34.7 g/dl (32.0-35.9); MEAN CELL VOLUME 81.8 fl (80-96); MEAN PLT VOLUME 7.2 fl (7.5-11.1); NEUT % 73.8 % (42.8-82.8); PLATELET COUNT 213 K/MM3 (134-434); RBC 4.49 M/mm3 (4.00-5.60); RDW 13.4 % (11.9-15.9); WHITE BLOOD COUNT 6.1 K/mm3 (4.0-10.0)
[2017-05-29 09:28] LABS: INR 1.19 (0.82-1.09); PROTHROMBIN TIME (PATIENT) 13.5 SEC (9.98-11.88)
[2017-05-29 09:30] LABS: ACTIVATED PTT 28.2 SECONDS (26.9-34.4)
[2017-05-29 09:39] LABS: ALBUMIN 3.7 g/dl (3.4-5.0); ANION GAP 8 (8-16); BLOOD UREA NITROGEN 20 mg/dL (7-18); CALCIUM 8.4 mg/dL (8.5-10.1); CHLORIDE 103 mmol/L (98-107); CO2 27 mmol/L (21-32); CREATININE 1.4 mg/dL (0.7-1.3); GLUCOSE,RANDOM 144 mg/dL (74-106); LIPASE 174 U/L (73-393); POTASSIUM 3.2 mmol/L (3.5-5.1); SGOT/AST 14 U/L (15-37); SGPT/ALT 18 U/L (12-78); SODIUM 138 mmol/L (136-145); TOT PROT 6.7 g/dl (6.4-8.2)
[2017-05-29 09:41] LABS: ALK PHOS 42 U/L (45-117); BILIRUBIN,TOTAL 0.8 mg/dL (0.2-1.0)
[2017-05-29] MEDS: D5-1/2NS+20 MEQ KCL - 20 MEQ/1,000 ML INFUS.BAG IV SCH (13:18)
[2017-05-29 13:33] LABS: HEMATOCRIT 36.5 % (35.4-49); HEMOGLOBIN 12.5 GM/dL (11.7-16.9); MCHC 34.2 g/dl (32.0-35.9); MEAN CELL VOLUME 81.9 fl (80-96); MEAN PLT VOLUME 7.4 fl (7.5-11.1); PLATELET COUNT 231 K/MM3 (134-434); RBC 4.46 M/mm3 (4.00-5.60); RDW 13.5 % (11.9-15.9); WHITE BLOOD COUNT 7.2 K/mm3 (4.0-10.0)
--- NOTE | 2017-05-29 13:42 | HP ---
Admitting History and Physical - Admission History of Present Illness: 66 year old male with a history of HTN, HLD, COPD, [place] s/p stenting 2012, Anemia who presents for evaluation of rectal bleeding. The patient reports intermittent BRBPR over the past month. He notes that over the past 2 days he has been experiencing constant BRBPR with more frequent bowel movements that he notes this morning as consisting mostly of blood prompting his presentation to the ED for evaluation. He notes that he is on aspirin and plavix. He states that he had a colonoscopy 3-5 years ago that was reportedly unremarkable. Otherwise he denies any symptoms similar to this in the past. He endorses some lightheadedness as well as some SOB which is unchanged from his baseline due to his COPD. He otherwise denies fevers, chills, chest pain, nausea, vomiting, abdominal pain, pain with bowel movements, or changes with urination. - Past Medical History Cardiovascular: Yes: CAD (s/p stenting--LAD), HTN, Hyperlipdemia Pulmonary: Yes: COPD, Other (lobectomy). No: Asthma, Bronchitis, Cancer, O2 Dependent, Pneumonia, Previously Intubated, Pulmonary Embolus, Pulmonary Fibrosis, Sleep Apnea Gastrointestinal: Yes: GERD - Smoking History Smoking history: Never smoked Have you smoked in the past 12 months: No Aproximately how many cigarettes per day: 0 If you are a former smoker, when did you quit?: 1999 - Alcohol/Substance Use Hx Alcohol Use: No Home Medications - Allergies Allergies/Adverse Reactions: Allergies Allergy/AdvReac Type Severity Reaction Status Date / Time levofloxacin [From Levaquin] AdvReac Severe Rash Verified 05/29/17 08:07 - Home Medications Home Medications: Ambulatory Orders Aspirin [ASA -] 81 mg PO DAILY 11/14/12 Atorvastatin Ca [Lipitor] 40 mg PO HS 11/14/12 Lisinopril [Prinivil] 40 mg PO BID 11/14/12 Amlodipine Besylate [Norvasc -] 10 mg PO DAILY 03/07/13 Ranolazine [Ranexa] 500 mg PO BID 03/07/13 Pantoprazole Sodium [Protonix -] 40 mg PO DAILY 10/10/14 Metoprolol Succinate [Toprol Xl] 50 mg PO DAILY 12/03/16 Tamsulosin HCl [Flomax] 0.4 mg PO DAILY 12/03/16 Polyethylene Glycol 3350 [Miralax 119 gm Btl -] 17 gm PO BID #2 bottle 05/29/17 Review of Systems - Review of Systems Cardiovascular: reports: No Symptoms Respiratory: reports: No Symptoms Gastrointestinal: reports: Rectal Bleeding. denies: Abdominal Pain, Constipation Physical Examination Vital Signs: Vital Signs Temperature 97.7 F 05/29/17 08:08 Pulse Rate 65 05/29/17 11:30 Respiratory Rate 16 05/29/17 11:30 Blood Pressure 133/74 05/29/17 11:30 O2 Sat by Pulse Oximetry (%) 98 05/29/17 11:30 Neck: Yes: Supple Cardiovascular: Yes: Regular Rate and Rhythm Respiratory: Yes: Regular, CTA Bilaterally Gastrointestinal: Yes: Normal Bowel Sounds, Soft. No: Tenderness ...Rectal Exam: Yes: Inflammation. No: Hemorrhoids/External Labs: CBC, BMP 05/29/17 13:10 05/29/17 09:00 Problem List - Problems (1) Rectal bleed Assessment/Plan: probably hemorrhoids follow labs colon as outpatient Code(s): K62.5 - HEMORRHAGE OF ANUS AND RECTUM (2) CAD (coronary artery disease) Assessment/Plan: hold asa and plavix if hgb stable then resume asa cardio-? need plavix stent > 2 yrs Code(s): I25.10 - ATHSCL HEART DISEASE OF [place] CORONARY ARTERY W/O ANG PCTRS (3) Hypertension Assessment/Plan: stable same meds Code(s): I10 - ESSENTIAL (PRIMARY) HYPERTENSION (4) Brain aneurysm Assessment/Plan: S/P COIL NO STENT Code(s): I67.1 - CEREBRAL ANEURYSM, NONRUPTURED
[2017-05-29 13:44] VITALS: BMI 27.6
--- NOTE | 2017-05-29 16:15 | CON.CARD ---
Consult Consult Specialty:: Cardiology Reason for Consultation:: History of CAD. GI BLeeding - History of Present Illness Chief Complaint: No present cardiac complaits History of Present Illness: This is a 66 year old male with a PMH of HTN, HLD, COPD, former smoker, [place] s/p coronary stenting 2012, Anemia who presents for evaluation of rectal bleeding. e notes that over the past 2 days he has been experiencing constant BRBPR with more frequent bowel movements that he notes this morning as consisting mostly of blood prompting his presentation to the ED for evaluation. He was on aspirin and plavix. - Past Medical History Cardio/Vascular: Yes: CAD (s/p stenting--LAD), HTN, Hyperlipdemia Pulmonary: Yes: COPD, Other (lobectomy). No: Asthma, Bronchitis, Cancer, O2 Dependent, Pneumonia, Previously Intubated, Pulmonary Embolus, Pulmonary Fibrosis, Sleep Apnea Gastrointestinal: Yes: GERD - Alcohol/Substance Use Hx Alcohol Use: No - Smoking History Smoking history: Never smoked Have you smoked in the past 12 months: No Aproximately how many cigarettes per day: 0 If you are a former smoker, when did you quit?: 1999 Home Medications - Allergies Allergies/Adverse Reactions: Allergies Allergy/AdvReac Type Severity Reaction Status Date / Time levofloxacin [From Levaquin] AdvReac Severe Rash Verified 05/29/17 08:07 - Home Medications Home Medications: Ambulatory Orders Aspirin [ASA -] 81 mg PO DAILY 11/14/12 Atorvastatin Ca [Lipitor] 40 mg PO HS 11/14/12 Lisinopril [Prinivil] 40 mg PO BID 11/14/12 Amlodipine Besylate [Norvasc -] 10 mg PO DAILY 03/07/13 Ranolazine [Ranexa] 500 mg PO BID 03/07/13 Pantoprazole Sodium [Protonix -] 40 mg PO DAILY 10/10/14 Clopidogrel Bisulfate [Plavix -] 75 mg PO DAILY #0 10/11/14 Metoprolol Succinate [Toprol Xl] 50 mg PO DAILY 12/03/16 Tamsulosin HCl [Flomax] 0.4 mg PO DAILY 12/03/16 Review of Systems Findings/Remarks: As per HPI Vital Signs: Vital Signs Temperature 98.1 F 05/29/17 13:25 Pulse Rate 56 L 05/29/17 13:25 Respiratory Rate 20 05/29/17 13:25 Blood Pressure 118/53 05/29/17 13:25 O2 Sat by Pulse Oximetry (%) 98 05/29/17 13:25 Constitutional: Yes: Well Nourished, No Distress Eyes: Yes: WNL HENT: Yes: WNL Respiratory: Yes: CTA Bilaterally Gastrointestinal: Yes: Soft Cardiovascular: Yes: Regular Rate and Rhythm (NL S1 S2, No MRHG) JVD: No Extremities: Yes: WNL Edema: No Neurological: Yes: Alert, Oriented (Nonfocal) - Other Data Labs, Other Data: CBC, BMP 05/29/17 13:10 05/29/17 09:00 INR, PTT INR 1.19 (0.82-1.09) H 05/29/17 09:00 Troponin, BNP 05/29/17 09:00 Troponin I < 0.02 Troponin, BNP 05/29/17 09:00 Troponin I < 0.02 Assessment/Plan Cardiovascular History of CAD with coronary stenting in 2012 GI bleedings - work-up in progress Presently no chest pain Can hold aspirin and Plavix for now Would continue Toprol XL 50 mg daily and Ranexa 500 mg PO BID as antianginals Continue Statin for secondary prevention HTN - continue Lisinopril 40 mg PO BID and amlodipine 10 mg PO daily Will follow with you
--- NOTE | 2017-05-29 17:17 | CON.GI ---
Consult Consult Specialty:: Gastroenterology Referred by:: Dr Sage Reason for Consultation:: Rectal bleeding - History of Present Illness Chief Complaint: Rectal bleeding for the past week. History of Present Illness: 66M has noted spotting of blood intermittently with defecation for the past week. He has been constipated and straining to defecate. Yesterday and today he had larger volume bleeding. He is on Plavix and aspirin. He denies abdominal pain. Appetite has been good and weight steady. No recent narrowing of stools. He had an EGD and colonoscopy with my associate Dr Sanjiv Patino on 06/19/11 when gastric bile reflux was noted and a fundal polyp removed. Colonoscopy revealed moderate sized internal hemorrhoids. He has not had any bleeding since this morning. 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 ) Cardio/Vascular: Yes: Aneurysm (Terumo AngioSeal applied to cerebral aneurysm [facility]), CAD (s/p stenting--LAD 2012 following ? [place]), HTN, Hyperlipdemia , [place] (2012) Pulmonary: Yes: COPD, Other (left lobectomy for infection, sleep apnea, pulmonary fibrosis ). No: Asthma, Bronchitis, Cancer, O2 Dependent, Pneumonia, Previously Intubated, Pulmonary Embolus, Pulmonary Fibrosis, Sleep Apnea Gastrointestinal: Yes: GERD Renal/: Yes: Renal Calculi - Past Surgical History Past Surgical History: Yes: Cholecystectomy (lap choly), Colonoscopy, Hernia Repair ([facility] 1998), Upper Endoscopy Additional Surgical History: Left lung lobectomy for infection 1998 - Alcohol/Substance Use Hx Alcohol Use: Yes (rare glass of wine) - Smoking History Smoking history: Former smoker Have you smoked in the past 12 months: No Aproximately how many cigarettes per day: 0 If you are a former smoker, when did you quit?: 1999 - Social History Usual Living Arrangement: With Spouse ADL: Independent 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 Place of : Other (born in [place]) History of Recent Travel: No Home Medications - Allergies Allergies/Adverse Reactions: Allergies Allergy/AdvReac Type Severity Reaction Status Date / Time levofloxacin [From Levaquin] AdvReac Severe Rash Verified 03/02/18 08:07 - Home Medications Home Medications: Ambulatory Orders Aspirin [ASA -] 81 mg PO DAILY 11/14/12 Atorvastatin Ca [Lipitor] 40 mg PO HS 11/14/12 Lisinopril [Prinivil] 40 mg PO BID 11/14/12 Amlodipine Besylate [Norvasc -] 10 mg PO DAILY 03/07/13 Ranolazine [Ranexa] 500 mg PO BID 03/07/13 Pantoprazole Sodium [Protonix -] 40 mg PO DAILY 10/10/14 Clopidogrel Bisulfate [Plavix -] 75 mg PO DAILY #0 10/11/14 Metoprolol Succinate [Toprol Xl] 50 mg PO DAILY 12/03/16 Tamsulosin HCl [Flomax] 0.4 mg PO DAILY 12/03/16 Family Disease History - Family Disease History Family Disease History: Diabetes: Mother ( 81 ? [place]), Heart Disease: Father ( [place] 56, alcohol abuse) Other Family History: no cancer Review of Systems - Review of Systems Constitutional: reports: No Symptoms Eyes: reports: No Symptoms HENT: reports: No Symptoms Neck: reports: No Symptoms Cardiovascular: reports: No Symptoms Respiratory: reports: No Symptoms Gastrointestinal: reports: Constipation, Rectal Bleeding Genitourinary: reports: No Symptoms Musculoskeletal: reports: No Symptoms Neurological: reports: No Symptoms Physical Exam-GI Vital Signs: Vital Signs Temperature 98.1 F 05/29/17 13:25 Pulse Rate 56 L 05/29/17 13:25 Respiratory Rate 20 05/29/17 13:25 Blood Pressure 118/53 05/29/17 13:25 O2 Sat by Pulse Oximetry (%) 98 05/29/17 13:25 CBC,CMP WBC 7.2 K/mm3 (4.0-10.0) 05/29/17 13:10 RBC 4.46 M/mm3 (4.00-5.60) 05/29/17 13:10 Hgb 12.5 GM/dL (11.7-16.9) 05/29/17 13:10 Hct 36.5 % (35.4-49) 05/29/17 13:10 MCV 81.9 fl (80-96) 05/29/17 13:10 MCH 28.0 pg (25.7-33.7) 05/29/17 13:10 MCHC 34.2 g/dl (32.0-35.9) 05/29/17 13:10 RDW 13.5 % (11.9-15.9) 05/29/17 13:10 Plt Count 231 K/MM3 (134-434) 05/29/17 13:10 MPV 7.4 fl (7.5-11.1) L 05/29/17 13:10 Neutrophils % 73.8 % (42.8-82.8) D 05/29/17 09:00 Lymphocytes % 12.6 % (8-40) D 05/29/17 09:00 Monocytes % 11.0 % (3.8-10.2) H 05/29/17 09:00 Eosinophils % 1.7 % (0-4.5) 05/29/17 09:00 Basophils % 0.9 % (0-2.0) 05/29/17 09:00 Sodium 138 mmol/L (136-145) 05/29/17 09:00 Potassium 3.2 mmol/L (3.5-5.1) L D 05/29/17 09:00 Chloride 103 mmol/L (98-107) 05/29/17 09:00 Carbon Dioxide 27 mmol/L (21-32) 05/29/17 09:00 Anion Gap 8 (8-16) 05/29/17 09:00 BUN 20 mg/dL (7-18) H 05/29/17 09:00 Creatinine 1.4 mg/dL (0.7-1.3) H 05/29/17 09:00 Creat Clearance w eGFR 50.40 (>60) 05/29/17 09:00 Random Glucose 144 mg/dL (74-106) H D 05/29/17 09:00 Calcium 8.4 mg/dL (8.5-10.1) L 05/29/17 09:00 Ferritin 17.461 ng/ml (16.4-293.9) 05/29/17 09:00 Total Bilirubin 0.8 mg/dL (0.2-1.0) 05/29/17 09:00 AST 14 U/L (15-37) L 05/29/17 09:00 ALT 18 U/L (12-78) D 05/29/17 09:00 Alkaline Phosphatase 42 U/L (45-117) L D 05/29/17 09:00 Creatine Kinase 128 IU/L (39-308) 05/29/17 09:00 Troponin I < 0.02 ng/ml (0.00-0.05) 05/29/17 09:00 Total Protein 6.7 g/dl (6.4-8.2) 05/29/17 09:00 Albumin 3.7 g/dl (3.4-5.0) 05/29/17 09:00 Lipase 174 U/L (73-393) 05/29/17 09:00 Current Medications Generic Name Dose Route Start Last Admin Trade Name Freq PRN Reason Stop Dose Admin Amlodipine Besylate 10 mg 05/30/17 10:00 Norvasc - PO DAILY DEMETRIUS Atorvastatin Calcium 40 mg 05/29/17 22:00 Lipitor - PO HS DEMETRIUS Potassium Chloride/Dextrose/Sod Cl 20 meq in 1,000 mls @ 75 mls/hr 05/29/17 12 :30 05/29/17 13:18 D5-1/2ns+20 Meq Kcl - IV 75 mls/hr ASDIR DEMETRIUS Administration Lisinopril 40 mg 05/29/17 22:00 Prinivil PO BID DEMETRIUS Metoprolol Succinate 50 mg 05/30/17 10:00 Toprol Xl - PO DAILY DEMETRIUS Pantoprazole Sodium 40 mg 05/30/17 10:00 Protonix - PO DAILY DEMETRIUS Ranolazine 500 mg 05/29/17 22:00 Ranexa - PO BID DEMETRIUS Tamsulosin HCl 0.4 mg 05/30/17 08:30 Flomax - PO DAILY@0830 DEMETRIUS Constitutional: Yes: No Distress Eyes: Yes: Conjunctiva Clear HENT: Yes: Normocephalic Neck: Yes: Supple Cardiovascular: Yes: Regular Rate and Rhythm Respiratory: Yes: CTA Bilaterally, Other (left mediastinoscopy incision) Gastrointestinal Inspection: Yes: Scars (RIH and laparoscopic incisions) ...Auscultate: Yes: Normoactive Bowel Sounds ...Palpate: Yes: Soft, Other (nontender) ...Rectal Exam: Yes: Guaiac Trace, Hemorrhoids/External Genitourinary: Yes: Other (2+ prostate) Musculoskeletal: Yes: WNL Extremities: Yes: WNL Edema: No Peripheral Pulses WNL: Yes Neurological: Yes: Alert, Oriented Labs: CBC, BMP 05/29/17 13:10 05/29/17 09:00 INR, PTT INR 1.19 (0.82-1.09) H 05/29/17 09:00 Problem List - Problems (1) Rectal bleed Assessment/Plan: The pattern of bleeding on Plavix, associated with a normal Hb and constipation is most suggestive of hemorrhoids. I will allow him to eat solids. If no major bleeding develops overnight then he can be discharged in the AM to pursue colonoscopy as an outpatient as he needs to have Plavix stopped for 8 days prior to the procedure. Would send home on Miralax to alleviate constipation and hemorrhoidal bleeding. I discussed the case with Dr Sage. Code(s): K62.5 - HEMORRHAGE OF ANUS AND RECTUM
[2017-05-29 18:50] LABS: HEMATOCRIT 36.7 % (35.4-49); HEMOGLOBIN 12.7 GM/dL (11.7-16.9); MCH 28.2 pg (25.7-33.7); MCHC 34.5 g/dl (32.0-35.9); MEAN CELL VOLUME 81.9 fl (80-96); MEAN PLT VOLUME 7.5 fl (7.5-11.1); PLATELET COUNT 224 K/MM3 (134-434); RBC 4.48 M/mm3 (4.00-5.60); RDW 13.3 % (11.9-15.9); WHITE BLOOD COUNT 6.7 K/mm3 (4.0-10.0)
[2017-05-29] MEDS: LISINOPRIL 20 MG TABLET (FP) PO SCH (21:00)
[2017-05-29] MEDS: POLYETHYLENE GLYCOL 3350 119 GM BTL PO SCH (21:00)
[2017-05-29] MEDS: RANOLAZINE E.R. 500 MG TABLET (FP) PO SCH (21:00)
[2017-05-29] MEDS ORDERED: ATORVASTATIN CA 40 MG TABLET (FP) PO SCH (22:00)
[2017-05-30] MEDS: D5-1/2NS+20 MEQ KCL - 20 MEQ/1,000 ML INFUS.BAG IV SCH (04:58)
[2017-05-30 07:48] LABS: HEMATOCRIT 35.5 % (35.4-49); HEMOGLOBIN 12.2 GM/dL (11.7-16.9); MCH 28.2 pg (25.7-33.7); MCHC 34.3 g/dl (32.0-35.9); MEAN CELL VOLUME 82.4 fl (80-96); MEAN PLT VOLUME 7.8 fl (7.5-11.1); PLATELET COUNT 214 K/MM3 (134-434); RBC 4.31 M/mm3 (4.00-5.60); RDW 13.6 % (11.9-15.9); WHITE BLOOD COUNT 6.4 K/mm3 (4.0-10.0)
[2017-05-30 08:04] LABS: ANION GAP 12 (8-16); BLOOD UREA NITROGEN 14 mg/dL (7-18); CALCIUM 8.7 mg/dL (8.5-10.1); CHLORIDE 102 mmol/L (98-107); CO2 26 mmol/L (21-32); CREATININE 1.3 mg/dL (0.7-1.3); GLUCOSE,RANDOM 108 mg/dL (74-106); POTASSIUM 3.5 mmol/L (3.5-5.1); SODIUM 140 mmol/L (136-145)
[2017-05-30 08:10] LABS: SERUM IRON SATURATION 20 % (15-55); TOTAL IRON BINDING CAPACITY 347 ug/dL (250-450); UIBC 277 ug/dL (111-343)
[2017-05-30] MEDS ORDERED: TAMSULOSIN HCL 0.4 MG CAP.ER.24H (FP) PO SCH (08:30)
[2017-05-30] MEDS: RANOLAZINE E.R. 500 MG TABLET (FP) PO SCH (09:48)
[2017-05-30] MEDS: LISINOPRIL 20 MG TABLET (FP) PO SCH (09:48)
[2017-05-30] MEDS: POLYETHYLENE GLYCOL 3350 119 GM BTL PO SCH ×2 (09:49→10:09)
--- NOTE | 2017-05-30 09:54 | DS ---
Physical Examination Vital Signs: Vital Signs Temperature 97.9 F 05/30/17 06:13 Pulse Rate 59 L 05/30/17 06:13 Respiratory Rate 18 05/30/17 06:13 Blood Pressure 117/57 05/30/17 06:13 O2 Sat by Pulse Oximetry (%) 95 05/30/17 04:00 Cardiovascular: Yes: Regular Rate and Rhythm Respiratory: Yes: Regular, CTA Bilaterally Gastrointestinal: Yes: Normal Bowel Sounds, Soft. No: Tenderness Labs: CBC, BMP 05/30/17 06:20 05/30/17 06:20 Discharge Summary Reason For Visit: RECTAL HEMORRHAGE Current Active Problems Rectal bleed (Acute) Hospital Course: 66 year old male with a history of HTN, HLD, COPD, [place] s/p stenting 2012, Anemia who presents for evaluation of rectal bleeding. The patient reports intermittent BRBPR over the past month. He notes that over the past 2 days he has been experiencing constant BRBPR with more frequent bowel movements that he notes this morning as consisting mostly of blood prompting his presentation to the ED for evaluation. He notes that he is on aspirin and plavix. He states that he had a colonoscopy 3-5 years ago that was reportedly unremarkable. Otherwise he denies any symptoms similar to this in the past. He endorses some lightheadedness as well as some SOB which is unchanged from his baseline due to his COPD. He otherwise denies fevers, chills, chest pain, nausea, vomiting, abdominal pain, pain with bowel movements, or changes with urination. - Past Medical History Cardiovascular: Yes: CAD (s/p stenting--LAD), HTN, Hyperlipdemia Pulmonary: Yes: COPD, Other (lobectomy). No: Asthma, Bronchitis, Cancer, O2 Dependent, Pneumonia, Previously Intubated, Pulmonary Embolus, Pulmonary Fibrosis, Sleep Apnea Gastrointestinal: Yes: GERD - Problems (1) Rectal bleed Assessment/Plan: probably hemorrhoids follow labs colon as outpatient Code(s): K62.5 - HEMORRHAGE OF ANUS AND RECTUM (2) CAD (coronary artery disease) Assessment/Plan: hold plavix ASA 81 mg hgb stable t resume asa cardio-noted- need plavix stent > 2 yrs Code(s): I25.10 - ATHSCL HEART DISEASE OF [place] CORONARY ARTERY W/O ANG PCTRS (3) Hypertension Assessment/Plan: stable same meds Code(s): I10 - ESSENTIAL (PRIMARY) HYPERTENSION (4) Brain aneurysm Assessment/Plan: S/P COIL NO STENT Code(s): I67.1 - CEREBRAL ANEURYSM, NONRUPTURED Condition: Stable - Instructions Referrals: Elicia Sage MD [Primary Care Provider] - Scot Rivers MD [Staff Physician] - Disposition: HOME - Home Medications Comprehensive Discharge Medication List: Ambulatory Orders Aspirin [ASA -] 81 mg PO DAILY 11/14/12 Atorvastatin Ca [Lipitor] 40 mg PO HS 11/14/12 Lisinopril [Prinivil] 40 mg PO BID 11/14/12 Amlodipine Besylate [Norvasc -] 10 mg PO DAILY 03/07/13 Ranolazine [Ranexa] 500 mg PO BID 03/07/13 Pantoprazole Sodium [Protonix -] 40 mg PO DAILY 10/10/14 Metoprolol Succinate [Toprol Xl] 50 mg PO DAILY 12/03/16 Tamsulosin HCl [Flomax] 0.4 mg PO DAILY 12/03/16 Polyethylene Glycol 3350 [Miralax 119 gm Btl -] 17 gm PO BID #2 bottle 05/29/17
[2017-05-30] MEDS ORDERED: PANTOPRAZOLE 40 MG TABLET (FP) PO SCH (10:00)
[2017-05-30] MEDS ORDERED: amLODIPine BESYLATE 10 MG TABLET (FP) PO SCH (10:00)
[2017-05-30 10:02] VITALS: BP 115/67; PULSE 76; TEMP 98
--- NOTE | 2017-05-30 11:49 | EKG ---
Test Reason : Blood Pressure : / mmHG Vent. Rate : 063 BPM Atrial Rate : 063 BPM P-R Int : 186 ms QRS Dur : 120 ms QT Int : 424 ms P-R-T Axes : 053 -48 016 degrees QTc Int : 433 ms NORMAL SINUS RHYTHM LEFT ANTERIOR FASCICULAR BLOCK ABNORMAL ECG Confirmed by MD JASPAL, IRINEO (2012) on 05/30/2017 11:49:04 AM Referred By: Confirmed By:IRINEO SHAY MD
== END 2017-05-30 14:13 | disposition home or self-care (01) ==
LOC: JER 08:01 → JERBED 11:04 → J7W 12:10
PROVIDERS: ADMIT Family Medicine; ATTEND Family Medicine
PROC: 3E033GC Introduction of Other Therapeutic Substance into Peripheral Vein, Percutaneous Approach (ICD-10-PCS; principal; 2017-05-29)
DX: K62.5 Hemorrhage of anus and rectum (principal); I10 Essential (primary) hypertension; I25.10 Atherosclerotic heart disease of native coronary artery without angina pectoris; I25.2 Old myocardial infarction; E78.5 Hyperlipidemia, unspecified; D64.9 Anemia, unspecified; J44.9 Chronic obstructive pulmonary disease, unspecified; K21.9 Gastro-esophageal reflux disease without esophagitis; N40.0 Benign prostatic hyperplasia without lower urinary tract symptoms; Z87.891 Personal history of nicotine dependence; Z86.11 Personal history of tuberculosis; Z88.1 Allergy status to other antibiotic agents; Z95.5 Presence of coronary angioplasty implant and graft; Z79.82 Long term (current) use of aspirin; Z79.01 Long term (current) use of anticoagulants
CPT/HCPCS: 36415; 80048; 80053; 82272; 82550; 82728; 83540; 83550; 83690; 84484; 85025; 85027; 85610; 85730; 86850; 86900; 86901; 93005; 93010; 99284-25; G0378

== ENCOUNTER 2017-06-16 10:23 | Day surgery (SDC) | payer OTHER, BC ==
[2017-06-15 14:51] VITALS: BMI 29.0
[2017-06-16 12:33] VITALS: TEMP 97.8
[2017-06-16 13:43] VITALS: BP 121/70; PULSE 58
== END 2017-06-16 13:45 | disposition home or self-care (01) ==
LOC: JASU-ENDO 10:23
PROVIDERS: ATTEND Internal Medicine Gastroenterology
PROC: 0D5H8ZZ Destruction of Cecum, Via Natural or Artificial Opening Endoscopic (ICD-10-PCS; principal; 2017-06-16 11:00)
DX: K55.20 Angiodysplasia of colon without hemorrhage (principal); K57.30 Diverticulosis of large intestine without perforation or abscess without bleeding; K64.8 Other hemorrhoids

== ENCOUNTER 2018-11-19 04:52 | Day surgery (SDC) | payer OTHER, BC ==
[2018-11-18 12:12] VITALS: BMI 27.1
[2018-11-19] MEDS ORDERED: LIDOCAINE 1%-EPI 1:100,000 30 ML MDV IJ ONE (11:24)
[2018-11-19] MEDS ORDERED: MIDAZOLAM HCL 2 MG/2 ML SINGLE DOSE VIAL ONE ×2 (11:44)
[2018-11-19] MEDS ORDERED: ceFAZolin SODIUM 1 GM VIAL IVPB ONE (12:10)
[2018-11-19] MEDS ORDERED: LIDOCAINE 1%/EPI 1:100000 (50 ML MULTI DOSE VIAL) NR ONE ×2 (12:17)
[2018-11-19] MEDS ORDERED: ONDANSETRON 4 MG/2 ML VIAL IVPUSH PRN (12:53)
[2018-11-19] MEDS ORDERED: PROMETHAZINE HCL 25 MG/1 ML VIAL IVPB PRN (12:53)
[2018-11-19] MEDS ORDERED: oxyCODONE HCL 5 MG TABLET PO PRN (12:53)
[2018-11-19] MEDS ORDERED: LACTATED RINGERS SOLUTION 1,000 ML IV SCH (13:00)
--- NOTE | 2018-11-19 13:56 | OP ---
DATE OF OPERATION: 11/19/2018 SURGICAL ATTENDING: Dheeraj Huntley MD PREOPERATIVE DIAGNOSES: 1. Right posterior neck mass. 2. Left upper back mass. POSTOPERATIVE DIAGNOSES: 1. Right posterior neck mass. 2. Left upper back mass. ANESTHESIA: Local with sedation. PROCEDURES: 1. Right posterior neck mass excision. 2. Left upper back mass excision. DESCRIPTION OF PROCEDURE: The patient was taken into the operating room, placed in the prone position, head in a horseshoe head rest. Arms were tucked. All pressure points were checked and protected. IV antibiotics and IV sedation were given. The neck and back were then prepped and draped in the usual sterile fashion in 1 field. Local anesthesia was administered. The posterior neck mass was identified, and a 4-cm incision was made and carried down through subcutaneous tissues. The mass was identified beneath the muscular layer, excised, and sent to Pathology. It was fatty in appearance. Hemostasis was achieved. The wound was closed in 3 layers. Dermabond was placed. The left upper back mass was then identified. Local anesthesia was infiltrated. A 4-cm incision was made, carried down through subcutaneous tissues. Flaps were raised superiorly and inferiorly, and a block of fatty tissue was removed. Hemostasis was achieved. The wound was then closed in 2 layers. Dermabond was placed. The patient was then awaken and taken to recovery in stable condition. Dr. Huntley, the attending surgeon, was present throughout the entire procedure. DHEERAJ HUNTLEY M.D. [id number]
[2018-11-19 14:28] VITALS: BP 114/57; PULSE 71; TEMP 99.1
--- NOTE | 2018-11-25 11:01 | PATH ---
Surgical Pathology Report Patient Name: GRACE GRAVES Med. Rec. #: [id number] /Age/Gender: 1950 (Age: 68) / M Account: [id number] Location: [facility] Taken: 11/19/2018 Received: 11/19/2018 Reported: 11/25/2018 Physicians: Holden Aldrich M.D. Specimen(s) Received A: RIGHT POSTERIOR NECK MASS B: LEFT UPPER BACK MASS Clinical History Right posterior neck mass in left upper back mass Final Diagnosis A. RIGHT POSTERIOR NECK MASS, EXCISION: MATURE ADIPOSE TISSUE CONSISTENT WITH LIPOMA. SMALL PORTION OF SKELETAL MUSCLE WITH NO DIAGNOSTIC ABNORMALITIES. B. LEFT UPPER BACK MASS, EXCISION: MATURE ADIPOSE TISSUE ADMIXED WITH DENSE FIBROTIC BUNDLES, CONSISTENT WITH FIBROLIPOMA. Electronically Signed Kell Banks M.D. Gross Description A. Received in formalin labeled "right posterior neck mass" is a yellow, lobulated, adipose tissue measuring 3 x 3 x 1 cm. The specimen is undesignated. The entire outer surface is inked in black. Cut section shows homogenous surface. No hemorrhage or necrosis identified. Comic Writer sections are submitted in one cassette. B. Received in formalin labeled "left upper back mass" is a yellow, lobulated, adipose tissue measuring 4 x 3 x 1.5 cm. The specimen is undesignated. The entire outer surface is inked in black. No hemorrhage or necrosis identified. Comic Writer sections are submitted in two cassettes. MLSZ/11/20/2018 pradeep/11/20/2018
== END 2018-11-19 14:25 | disposition home or self-care (01) ==
LOC: JASU-SURG 04:52
PROVIDERS: ATTEND Surgery
PROC: 0JB40ZZ Excision of Right Neck Subcutaneous Tissue and Fascia, Open Approach (ICD-10-PCS; 2018-11-19)
PROC: 0JB70ZZ Excision of Back Subcutaneous Tissue and Fascia, Open Approach (ICD-10-PCS; principal; 2018-11-19 10:30)
DX: D21.0 Benign neoplasm of connective and other soft tissue of head, face and neck (principal); D21.6 Benign neoplasm of connective and other soft tissue of trunk, unspecified
CPT/HCPCS: 88304-TC; 94760

== ENCOUNTER 2019-01-11 11:00 | Day surgery (SDC) | payer OTHER, BC ==
[2019-01-10 15:54] VITALS: BMI 29.2
[2019-01-11 12:08] VITALS: TEMP 98
[2019-01-11 14:58] VITALS: BP 151/75; PULSE 56
--- NOTE | 2019-01-12 17:34 | PATH ---
Surgical Pathology Report Patient Name: GRACE GRAVES [facility]. Rec. #: [id number] /Age/Gender: 1950 (Age: 68) / M Account: [id number] Location: [facility] Taken: 01/11/2019 Received: 01/11/2019 Reported: 01/12/2019 Physicians: Sanjiv Patino M.D. Specimen(s) Received STOMACH, BODY AND ANTRUM Clinical History Anemia Postoperative diagnosis: Gastritis, diverticulosis, AVM cecum Final Diagnosis STOMACH, BODY AND ANTRUM, BIOPSY: GASTRIC MUCOSA WITH MILD CHRONIC GASTRITIS. IMMUNOHISTOCHEMICAL STAIN FOR H. PYLORI IS NEGATIVE. Electronically Signed Rocio Cortez M.D. Gross Description Received in formalin, labeled "stomach body and antrum" are 7 bain, irregular portions of soft tissue ranging in size from 0.1-0.7 cm. in greatest dimension. The specimens are submitted in toto in one cassette. MLSZ/01/11/2019 santory/01/11/2019
== END 2019-01-11 13:40 | disposition home or self-care (01) ==
LOC: JASU-SURG 11:00 → JASU-ENDO 11:00
PROVIDERS: ATTEND Internal Medicine Gastroenterology
PROC: 0DB68ZX Excision of Stomach, Via Natural or Artificial Opening Endoscopic, Diagnostic (ICD-10-PCS; 2019-01-11)
PROC: 0D5H8ZZ Destruction of Cecum, Via Natural or Artificial Opening Endoscopic (ICD-10-PCS; principal; 2019-01-11 11:15)
DX: D50.9 Iron deficiency anemia, unspecified (principal); K55.20 Angiodysplasia of colon without hemorrhage; K57.30 Diverticulosis of large intestine without perforation or abscess without bleeding; K64.8 Other hemorrhoids; I10 Essential (primary) hypertension; E78.00 Pure hypercholesterolemia, unspecified; N40.0 Benign prostatic hyperplasia without lower urinary tract symptoms; I25.10 Atherosclerotic heart disease of native coronary artery without angina pectoris; Z86.79 Personal history of other diseases of the circulatory system; Z87.442 Personal history of urinary calculi
CPT/HCPCS: 88305-TC; 88342-TC

== ENCOUNTER 2021-10-21 14:14 | Emergency (ER) | payer OTHER, BC ==
[2021-10-21 16:11] VITALS: BP 136/71; PULSE 59; RESP 18; TEMP 98.2; BMI 27.4
[2021-10-21] MEDS ORDERED: BEBTELOVIMAB (EUA) 175 MG/2 ML VIAL IVPUSH ONE (16:57)
== END 2021-10-21 19:00 | disposition home or self-care (01) ==
LOC: JER 14:14
DX: U07.1 COVID-19 (principal)
CPT/HCPCS: 99283-25; M0222; Q0222

== ENCOUNTER 2024-07-26 01:58 | Inpatient (IN) | payer OTHER, BC ==
[2024-07-26] MEDS ORDERED: ACETAMINOPHEN INJECTION 100 ML ONE (02:29)
[2024-07-26] MEDS: ACETAMINOPHEN 1000 MG/100 ML BAG IVPB ONE (02:45)
[2024-07-26 02:47] LABS: ABSOLUTE IMMATURE GRANULOCYTES 0.02 x10^3/uL (0.0-0.031); BASOPHILS # 0.06 x10^3/uL (0.01-0.08); EOSINOPHIL % 4.6 % (0.8-7.0); EOSINOPHILS # 0.34 x10^3/uL (0.04-0.54); HEMATOCRIT 41.9 % (40.1-51.0); HEMOGLOBIN 13.9 g/dL (13.7-17.5); MCHC 33.2 g/dl (32.3-36.5); MEAN CELL VOLUME 81.8 fl (79.0-92.2); MEAN PLT VOLUME 8.8 fl (9.4-12.4); MONOCYTE # 0.73 x10^3/uL (0.30-0.82); MONOCYTE % 9.9 % (5.3-12.2); PLATELET COUNT 225 x10^3/uL (163-337); RDW 12.8 % (12.2-16.6)
[2024-07-26 02:48] LABS: URINE APPEARANCE CLOUDY; URINE BILIRUBIN NEGATIVE (NEGATIVE); URINE COLOR YELLOW; URINE GLUCOSE (UA) NEGATIVE (NEGATIVE); URINE KETONE NEGATIVE (NEGATIVE); URINE LEUK ESTERASE NEGATIVE (NEGATIVE); URINE NITRITE NEGATIVE (NEGATIVE); URINE PROTEIN 4+ (NEGATIVE); URINE UROBILINOGEN 0.2 mg/dL (0.2-1.0)
[2024-07-26 02:59] LABS: INR 1.22 (0.83-1.09); PROTHROMBIN TIME (PATIENT) 13.4 SEC (9.7-13.0)
[2024-07-26 03:00] LABS: POTASSIUM 3.8 mmol/L (3.5-5.1)
[2024-07-26 03:01] LABS: ACTIVATED PTT 29.8 SECONDS (25.2-36.5)
[2024-07-26 03:02] LABS: CALCIUM 9.3 mg/dL (8.5-10.1)
[2024-07-26 03:03] LABS: ALBUMIN 3.7 g/dl (3.4-5.0); BLOOD UREA NITROGEN 18.7 mg/dL (7-18)
[2024-07-26 03:06] LABS: CREATININE 1.1 mg/dL (0.55-1.3)
[2024-07-26 03:08] LABS: BILIRUBIN,TOTAL 0.8 mg/dL (0.2-1); TOT PROT 6.8 g/dl (6.4-8.2)
[2024-07-26] MEDS ORDERED: LIDOCAINE HCL 2% JELLY 6 ML TP ONE (03:11)
[2024-07-26] MEDS: D5-1/2NS+20 MEQ KCL - 20 MEQ/1,000 ML INFUS.BAG IV SCH (06:28)
[2024-07-26] MEDS ORDERED: ALBUTEROL SO4 HFA INHALER IH PRN (06:41)
[2024-07-26] MEDS ORDERED: MAG HYDROX/AL HYDROX/SIMETH 30 ML UNIT-DOSE CUP PO PRN (06:50)
[2024-07-26 08:45] VITALS: BMI 27.3
[2024-07-26] MEDS: CARVEDILOL 25 MG TABLET (FP) PO SCH (10:19)
[2024-07-26] MEDS: amLODIPine BESYLATE 5 MG TABLET (FP) PO SCH (10:19)
[2024-07-26] MEDS: TAMSULOSIN HCL 0.4 MG CAP PO SCH (10:19)
[2024-07-26] MEDS: PANTOPRAZOLE 40 MG TABLET PO SCH (10:19)
[2024-07-26] MEDS: RAMIPRIL 5 MG CAPSULE PO SCH (10:19)
[2024-07-26] MEDS: ROSUVASTATIN CA 20 MG TABLET PO SCH (21:19)
[2024-07-26] MEDS ORDERED: ATORVASTATIN CA 40 MG TABLET (FP) PO SCH (22:00)
[2024-07-26] MEDS ORDERED: LISINOPRIL 20 MG TABLET PO SCH (22:00)
[2024-07-27] MEDS: ACETAMINOPHEN 1000 MG/100 ML BAG IVPB PRN (00:33)
[2024-07-27 07:32] LABS: ABSOLUTE IMMATURE GRANULOCYTES 0.02 x10^3/uL (0.0-0.031); BASOPHILS # 0.05 x10^3/uL (0.01-0.08); EOSINOPHIL % 3.8 % (0.8-7.0); HEMATOCRIT 36.9 % (40.1-51.0); MCHC 32.5 g/dl (32.3-36.5); MEAN CELL VOLUME 82.2 fl (79.0-92.2); MEAN PLT VOLUME 9.2 fl (9.4-12.4); MONOCYTE # 0.84 x10^3/uL (0.30-0.82); MONOCYTE % 10.7 % (5.3-12.2); PLATELET COUNT 202 x10^3/uL (163-337); RDW 12.9 % (12.2-16.6)
[2024-07-27 07:59] LABS: POTASSIUM 3.7 mmol/L (3.5-5.1)
[2024-07-27 08:08] LABS: ALBUMIN 3.2 g/dl (3.4-5.0); BLOOD UREA NITROGEN 13.9 mg/dL (7-18); TOT PROT 5.9 g/dl (6.4-8.2)
[2024-07-27 08:11] LABS: CALCIUM 9.1 mg/dL (8.5-10.1); CREATININE 0.9 mg/dL (0.55-1.3); MAGNESIUM 2.3 mg/dL (1.8-2.4)
[2024-07-27] MEDS: DOCUSATE SODIUM 100 MG CAPSULE (FP) PO PRN (17:38)
[2024-07-27] MEDS: ACETAMINOPHEN 325 MG TABLET (FP) PO PRN (22:07)
[2024-07-28] MEDS: morphine SULFATE 4 MG/ML VIAL IVPUSH ONE ×2 (03:53→12:03)
[2024-07-28] MEDS: TAMSULOSIN HCL 0.4 MG CAP PO ONE (03:59)
[2024-07-28] MEDS ORDERED: morphine CARPU-JECT 4 MG/1 ML DISP.SYRIN IVPUSH ONE (04:00)
[2024-07-28] MEDS: ACETAMINOPHEN 1000 MG/100 ML BAG IVPB ONE (05:14)
[2024-07-28] MEDS: HYDROmorphone HCL CARPU-JECT 2 MG/1 ML DISP.SYRIN IVPUSH ONE (06:13)
[2024-07-28 07:35] LABS: ABSOLUTE IMMATURE GRANULOCYTES 0.07 x10^3/uL (0.0-0.031); BASOPHILS # 0.05 x10^3/uL (0.01-0.08); EOSINOPHIL % 2.1 % (0.8-7.0); EOSINOPHILS # 0.23 x10^3/uL (0.04-0.54); HEMATOCRIT 36.4 % (40.1-51.0); HEMOGLOBIN 12.1 g/dL (13.7-17.5); MCHC 33.2 g/dl (32.3-36.5); MEAN CELL VOLUME 82.4 fl (79.0-92.2); MEAN PLT VOLUME 9.2 fl (9.4-12.4); MONOCYTE % 7.4 % (5.3-12.2); PLATELET COUNT 231 x10^3/uL (163-337); RDW 12.9 % (12.2-16.6)
[2024-07-28] MEDS: CEFTRIAXONE 2 GM-D5W BAG 2 GM/50 ML BAG IVPB ONE (08:13)
[2024-07-28] MEDS ORDERED: DEXAMETHASONE SOD PHOSPHATE 4 MG/1 ML VIAL ONE (09:52)
[2024-07-28] MEDS ORDERED: MIDAZOLAM HCL 2 MG/2 ML SINGLE DOSE VIAL ONE (09:52)
[2024-07-28] MEDS ORDERED: LIDOCAINE HCL 2% 100 MG/5 ML DISP.SYRIN ONE (09:52)
[2024-07-28] MEDS ORDERED: PROPOFOL 20 ML ONE (09:52)
[2024-07-28] MEDS ORDERED: ONDANSETRON 4 MG/2 ML VIAL ONE (09:52)
[2024-07-28] MEDS ORDERED: ROCURONIUM BROMIDE 50 MG/5 ML SYRINGE ONE (10:15)
[2024-07-28] MEDS ORDERED: MAG HYDROX/AL HYDROX/SIMETH 30 ML UNIT-DOSE CUP PO PRN (10:57)
[2024-07-28] MEDS ORDERED: ACETAMINOPHEN 325 MG TABLET (FP) PO PRN (10:57)
[2024-07-28] MEDS ORDERED: ALBUTEROL SO4 HFA INHALER IH PRN (10:57)
[2024-07-28] MEDS ORDERED: DOCUSATE SODIUM 100 MG CAPSULE (FP) PO PRN (10:57)
[2024-07-28] MEDS ORDERED: ONDANSETRON 4 MG/2 ML VIAL IVPUSH PRN (11:15)
[2024-07-28] MEDS ORDERED: LACTATED RINGERS SOLUTION 1,000 ML IV SCH (11:15)
[2024-07-28] MEDS: D5-1/2NS+20 MEQ KCL - 20 MEQ/1,000 ML INFUS.BAG IV SCH (12:20)
[2024-07-28 15:32] LABS: HEMATOCRIT 36.3 % (40.1-51.0); HEMOGLOBIN 11.8 g/dL (13.7-17.5); MCHC 32.5 g/dl (32.3-36.5); MEAN CELL VOLUME 82.7 fl (79.0-92.2); MEAN PLT VOLUME 9.4 fl (9.4-12.4); PLATELET COUNT 220 x10^3/uL (163-337); RDW 12.9 % (12.2-16.6)
[2024-07-28] MEDS: RAMIPRIL 5 MG CAPSULE PO SCH (21:53)
[2024-07-28] MEDS: ROSUVASTATIN CA 20 MG TABLET PO SCH (21:53)
[2024-07-28] MEDS: CARVEDILOL 25 MG TABLET (FP) PO SCH (21:54)
[2024-07-29] MEDS: TAMSULOSIN HCL 0.4 MG CAP PO SCH (08:29)
[2024-07-29] MEDS: PANTOPRAZOLE 40 MG TABLET PO SCH (09:48)
[2024-07-29] MEDS: amLODIPine BESYLATE 5 MG TABLET (FP) PO SCH (09:48)
[2024-07-29] MEDS: ERTAPENEM SODIUM 1 GM in SODIUM CHLORIDE 50 ML IVPB SCH (09:49)
[2024-07-30 08:29] LABS: ABSOLUTE IMMATURE GRANULOCYTES 0.04 x10^3/uL (0.0-0.031); BASOPHILS # 0.05 x10^3/uL (0.01-0.08); EOSINOPHIL % 2.9 % (0.8-7.0); EOSINOPHILS # 0.32 x10^3/uL (0.04-0.54); HEMATOCRIT 32.5 % (40.1-51.0); HEMOGLOBIN 10.6 g/dL (13.7-17.5); MCHC 32.6 g/dl (32.3-36.5); MEAN CELL VOLUME 83.3 fl (79.0-92.2); MEAN PLT VOLUME 9.2 fl (9.4-12.4); MONOCYTE # 1.21 x10^3/uL (0.30-0.82); MONOCYTE % 11.1 % (5.3-12.2); PLATELET COUNT 200 x10^3/uL (163-337); RDW 13.3 % (12.2-16.6)
[2024-07-30 08:48] LABS: POTASSIUM 3.9 mmol/L (3.5-5.1)
[2024-07-30 08:57] LABS: ALBUMIN 3.2 g/dl (3.4-5.0); BLOOD UREA NITROGEN 12.9 mg/dL (7-18); CALCIUM 8.9 mg/dL (8.5-10.1)
[2024-07-30 09:01] LABS: BILIRUBIN,TOTAL 0.9 mg/dL (0.2-1); CREATININE 0.9 mg/dL (0.55-1.3); TOT PROT 5.8 g/dl (6.4-8.2)
[2024-07-30] MEDS: DUTASTERIDE 0.5 MG CAP (FP) PO ONE (18:41)
[2024-07-31 06:09] VITALS: RESP 18
[2024-07-31 09:09] VITALS: BP 135/64; PULSE 65; TEMP 98.2
== END 2024-07-31 10:05 | disposition home or self-care (01) | DRG 909 ==
LOC: JER 01:58 → JERBED 04:35 → J7W 06:37 → OBSVTOIN 08:51
PROVIDERS: ADMIT Internal Medicine; ATTEND Family Medicine
PROC: 0TCB8ZZ Extirpation of Matter from Bladder, Via Natural or Artificial Opening Endoscopic (ICD-10-PCS; 2024-07-28)
PROC: 3E1K78Z Irrigation of Genitourinary Tract using Irrigating Substance, Via Natural or Artificial Opening (ICD-10-PCS; 2024-07-28)
PROC: 0W3R8ZZ Control Bleeding in Genitourinary Tract, Via Natural or Artificial Opening Endoscopic (ICD-10-PCS; principal; 2024-07-28 10:00)
DX: N99.820 Postprocedural hemorrhage of a genitourinary system organ or structure following a genitourinary system procedure (principal); I10 Essential (primary) hypertension; E78.5 Hyperlipidemia, unspecified; J44.9 Chronic obstructive pulmonary disease, unspecified; I25.2 Old myocardial infarction; I25.10 Atherosclerotic heart disease of native coronary artery without angina pectoris; K21.9 Gastro-esophageal reflux disease without esophagitis; R33.9 Retention of urine, unspecified; R91.1 Solitary pulmonary nodule; R31.0 Gross hematuria
CPT/HCPCS: 36415; 74176-TC; 80053; 81003; 83735; 85025; 85027; 85610; 85730; 86850; 86900; 86901; 87040; 87086; 93005; 93010; 94760; 99285-25; G0378; J0131